=== PATIENT | female | born 1940 | race Two or more races ===

== ENCOUNTER 2023-04-22 13:27 | Emergency (ER) | payer MEDICARE, OTHER ==
[~2023-04-22] VITALS: Ht 160 cm; Wt 90.0 kg
[2023-04-22 17:54] VITALS: BP 124/55; PULSE 99; RESP 20; TEMP 98.1; O2SAT 96
[2023-04-22] MEDS ORDERED: ACETAMINOPHEN 325 MG TAB PO ONE (21:45)
== END 2023-04-22 22:05 | disposition home or self-care (01) ==
LOC: ER 13:27
DX: M25.562 Pain in left knee (principal); M25.561 Pain in right knee; M11.20 Other chondrocalcinosis, unspecified site; E11.9 Type 2 diabetes mellitus without complications; E78.5 Hyperlipidemia, unspecified; I10 Essential (primary) hypertension; Z88.5 Allergy status to narcotic agent; Z91.040 Latex allergy status; Z90.49 Acquired absence of other specified parts of digestive tract; Z90.710 Acquired absence of both cervix and uterus; Z98.890 Other specified postprocedural states
CPT/HCPCS: 73562; 93971